=== PATIENT | male | born 1980 | race Caucasian/White ===

== ENCOUNTER 2018-11-02 13:33 | Emergency (ER) | payer OTHER ==
--- NOTE | 2018-11-02 13:42 | PDOC ---
Attending Attestation - Resident Resident Name: HarrellBlake - ED Attending Attestation I have performed the following: I have examined & evaluated the patient, The case was reviewed & discussed with the resident, I agree w/resident's findings & plan, Exceptions are as noted - HPI HPI: 38 yo M presents with L eye pain after he was struck by a plastic part while working on his car. Denies any blurry vision. No photophobia. +Erythema and increased tearing of the eye. - Physicial Exam PE: GENERAL: Awake, alert, and fully oriented, in no acute distress HEAD: No signs of trauma EYES: PERRLA, EOMI, sclera anicteric, conjunctiva clear. Fluorescein exam of L eye- no areas of increased uptake ENT: Auricles normal inspection, hearing grossly normal, nares patent, oropharynx clear without exudates. Moist mucosa NEUROLOGICAL: Cranial nerves II through XII grossly intact. Normal speech, normal gait. Motor and sensation intact SKIN: Warm, dry, normal turgor, no rashes or lesions noted. - Medical Decision Making No signs of corneal abrasion on fluorescein exam. Will give topical ketorolac drops for pain. Abx as prophylaxis, as it was a car part that struck his eye.
--- NOTE | 2018-11-02 13:42 | PDOC ---
History of Present Illness <Noreen Martines - Last Filed: 11/02/18 14:20> - History of Present Illness Initial Comments: Mr. Quigley is a 38 y/o male presenting with foreign body in the left eye. Reports that he was working on his car when a piece of plastic hit his left eye. Reports pain in his left eye. No vision changes. No headache, no dizziness , no LOC. No nausea/vomiting. No bleeding or discharge from the eye. Ophtho: Dr. Segovia <Blake Harrell - Last Filed: 11/03/18 22:59> - General Chief Complaint: Eye Problem Stated Complaint: LEFT EYE INJURY Time Seen by Provider: 11/02/18 13:35 Past History - Immunization History Tetanus Status: Less than 5 years TDAP Vaccination: Yes (2014) <Noreen Martines - Last Filed: 11/02/18 14:20> - Suicide/Smoking/Psychosocial Hx Smoking History: Never smoked Have you smoked in the past 12 months: No Hx Alcohol Use: No Substance Use Type: None Hx Substance Use Treatment: No <Blake Harrell - Last Filed: 11/03/18 22:59> - Past Medical History Allergies/Adverse Reactions: Allergies Allergy/AdvReac Type Severity Reaction Status Date / Time No Known Allergies Allergy Verified 11/02/18 13:45 Home Medications: Ambulatory Orders Erythromycin 0.5% Eye Ointment [Erythromycin 0.5% Eye Ointment -] 1 applic OS QID #1 tube 11/02/18 Ketorolac 0.5% Eye Drop 1 drop OS QID PRN 4 Days #1 bottle 11/02/18 Review of Systems - Review of Systems Comments:: ROS GENERAL/CONSTITUTIONAL: No fever or chills. No weakness._ HEAD, EYES, EARS, NOSE AND THROAT: No change in vision. Reports eye pain. No eye discharge or bleeding. No ear pain or discharge. No sore throat._ CARDIOVASCULAR: No chest pain or shortness of breath_ RESPIRATORY: Denies cough, hemoptysis GASTROINTESTINAL: No nausea, vomiting, diarrhea or constipation._ NEUROLOGIC: No headache, vertigo, loss of consciousness, or change in strength/ sensation._ <Blake Harrell - Last Filed: 11/03/18 22:59> *Physical Exam - Vital Signs Last Vital Signs Temp Pulse Resp BP Pulse Ox 98.8 F 103 H 16 125/85 95 11/02/18 13:34 11/02/18 13:34 11/02/18 13:34 11/02/18 13:34 11/02/18 13:34 <Noreen Martines - Last Filed: 11/02/18 14:20> - Physical Exam Comments: GENERAL: Awake, alert, and oriented to person/place/time, in no acute distress_ HEAD: No signs of trauma, normocephalic, atraumatic _ EYES: PERRLA, EOMI, vision 20/20 bilaterally, no foreign body grossly appreciated, conjunctival redness, no cornea abrasion seen on fluoroscein and blue light exam ENT: Hearing grossly normal, nares patent, oropharynx clear without exudates. No uvular deviation. Moist mucosa_ NECK: Normal ROM, supple, no lymphadenopathy, JVD, or masses. LUNGS: No distress, speaks in full sentences, clear to auscultation bilaterally. HEART: Regular rate and rhythm, normal S1 and S2, peripheral pulses normal and equal bilaterally._ ABDOMEN: Soft, nontender. NEUROLOGICAL: Cranial nerves II through XII grossly intact. Normal speech, normal gait, no focal sensorimotor deficits _ SKIN: Warm, Dry, normal turgor, no rashes or lesions noted_ <Blake Harrell - Last Filed: 11/03/18 22:59> Medical Decision Making - Medical Decision Making 38M with no significant PMH presenting after being hit in the left eye with a piece of plastic 1 hour ago while fixing his car. Vision 20/20 in the ED. No ocular bleeding or discharge. No corneal scarring or abrasion seen on blue light exam. Plan to d/c home with erythromycin drops QID for 4 days and ketorolac drops PRN. Return precautions given. F/u ophtho 1 week. <Blake Harrell - Last Filed: 11/03/18 22:59> *DC/Admit/Observation/Transfer <Noreen Martines - Last Filed: 11/02/18 14:20> - Discharge Dispostion Decision to Admit order: No <Blake Harrell - Last Filed: 11/03/18 22:59> Diagnosis at time of Disposition: Contusion, eye, left Qualifiers: Encounter type: initial encounter Qualified Code(s): S05.12XA - Contusion of eyeball and orbital tissues, left eye, initial encounter - Discharge Dispostion Disposition: HOME Condition at time of disposition: Stable - Prescriptions Prescriptions: Erythromycin 0.5% Eye Ointment [Erythromycin 0.5% Eye Ointment -] 1 applic OS QID #1 tube Ketorolac 0.5% Eye Drop 1 drop OS QID PRN 4 Days #1 bottle PRN Reason: Pain - Referrals Referrals: Aldo Patel MD [Primary Care Provider] - - Patient Instructions Printed Discharge Instructions: DI for Eye Contusion Additional Instructions: 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 Please apply the Erythromycin (antibiotic) ointment to your lower left eye lid and blink so that it covers the entire eye. Please do this 4 times per day for 4 days. Please use the Ketorolac drops in your left eye as needed for pain relief. If you experience any new, worsening, or concerning symptoms, including severe pain of the eye, bleeding or discharge from the eye, change in vision, fever, or any other concerns, please return to the emergency department. - Post Discharge Activity Forms/Work/School Notes: Back to Work
[2018-11-02] MEDS ORDERED: FLUORESCEIN NA 1 EA STRIP OS ONE (13:53)
[2018-11-02] MEDS ORDERED: TETRACAINE 0.5% HCL 0.6ML DROPPER.BOTTLE OS ONE (13:53)
[2018-11-02] MEDS ORDERED: TETRACAINE 0.5% OPHTH SOLN 2 ML BOTTLE ONE (13:55)
[2018-11-02 13:56] VITALS: BP 125/85; PULSE 103; TEMP 98.8; BMI 29.9
[2018-11-02] MEDS ORDERED: FLUORESCEIN NA 1 EA STRIP ONE (13:56)
[2018-11-02] MEDS ORDERED: ERYTHROMYCIN 0.5% OPHTHALMIC OINTMENT 3.5 GM TUBE OS ONE (14:05)
[2018-11-02] MEDS ORDERED: ERYTHROMYCIN 0.5% OPHTHALMIC OINTMENT 3.5 GM TUBE ONE (14:19)
== END 2018-11-02 14:50 | disposition home or self-care (01) ==
LOC: FER 13:33
DX: S05.12XA Contusion of eyeball and orbital tissues, left eye, initial encounter (principal); X58.XXXA Exposure to other specified factors, initial encounter; Y93.89 Activity, other specified; Y92.89 Other specified places as the place of occurrence of the external cause
CPT/HCPCS: 99282-25